=== PATIENT | male | born 1950 | race Hispanic/Latino ===

== ENCOUNTER 2018-11-05 06:16 | Day surgery (SDC) | payer OTHER ==
[2018-11-04 15:35] LABS: BASOPHILS % (AUTO) 1.4 % (0.0-5.0); EOSINOPHILS % (AUTO) 5.9 % (0.0-8.0); HEMATOCRIT 41.9 % (42-54); LYMPHOCYTES % (AUTO) 32.4 % (21.0-51.0); MEAN CORPUSCULAR HEMOGLOBIN 27.7 pg (27.0-33.0); MEAN CORPUSCULAR HGB CONC 32.8 g/dL (32.0-36.0); MEAN CORPUSCULAR VOLUME 84.7 fL (79-99); MONOCYTES % (AUTO) 6.5 % (3.0-13.0); NEUTROPHILS % (AUTO) 53.8 % (40.0-77.0); PLATELET COUNT (AUTO) 220 K/uL (130-400); RED BLOOD CELL COUNT(AUTO) 4.95 MIL/uL (4.50-6.20); RED CELL DISTRIBUTION WIDTH 13.6 % (11.0-15.5); WHITE BLOOD COUNT (AUTO) 7.1 K/uL (4.8-10.8)
[2018-11-04 15:48] VITALS: BP 154/70
[2018-11-04 15:48] LABS: CREATININE 0.9 mg/dL (0.5-1.5); POTASSIUM 3.9 mmol/L (3.5-5.1)
--- NOTE | 2018-11-04 16:50 | NUR ---
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 Repeat EKG will be determine day of procedure.
[2018-11-05] VITALS (19 sets, daily range): BP systolic 127–159; BP diastolic 62–80
[~2018-11-05] VITALS: Ht 175.3 cm; Wt 99.5 kg
[~2018-11-05 06:16] MED LIST: ASPI-555 PO
[2018-11-05] MEDS ORDERED: DEXAMETHASONE SOD PHOSPHATE 10MG/ML 1ML VIAL ONE (08:29)
[2018-11-05] MEDS ORDERED: LIDOCAINE PF 2% 5ML ABBOJECT ONE (08:29)
[2018-11-05] MEDS ORDERED: PROPOFOL 10 MG/ML 20ML VIAL IV ONE (08:29)
[2018-11-05] MEDS ORDERED: ONDANSETRON HCL 4 MG/2 ML VIAL ONE (08:29)
[2018-11-05] MEDS ORDERED: MIDAZOLAM HCL 1 MG/ML 2ML VIAL ONE (08:30)
[2018-11-05] MEDS: CEFAZOLIN SODIUM 1 GM VIAL IVP SCH ×2 (08:30→09:40)
[2018-11-05] MEDS ORDERED: SODIUM CHLORIDE 0.9% 1000ML 1,000 ML IV ONE (08:40)
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
[2018-11-05] MEDS ORDERED: FENTANYL CITRATE PF 50 MCG/1 ML 2ML VIAL ONE (09:54)
[2018-11-05] MEDS ORDERED: EPHEDRINE SULFATE 50 MG/ML AMPULE ONE (10:11)
[2018-11-05] MEDS ORDERED: MEPERIDINE-PF 25 MG/ML SYG ONE ×2 (10:57→11:08)
[2018-11-05] MEDS ORDERED: NAPR375T6 PO (10:58)
[2018-11-05] MEDS ORDERED: CEPH500B PO (10:58)
[2018-11-05] MEDS ORDERED: TYL3 PO (10:58)
[2018-11-05] MEDS ORDERED: RANI150T7 PO (11:31)
[2018-11-05] MEDS ORDERED: MULT-1258 PO (11:31)
[2018-11-05] MEDS ORDERED: ALFU10TA18 PO (11:31)
[2018-11-05] MEDS ORDERED: LISI40TA4 PO (11:31)
[2018-11-05] MEDS ORDERED: METF500S7 PO (11:31)
[2018-11-05] MEDS ORDERED: PRAV40TA3 PO (11:31)
--- NOTE | 2018-11-05 11:45 | NUR ---
PATIENT RETURNED FROM PACU IN NO DISTRESS. DRESSING TO RIGHT KNEE IS CLEAN AND DRY.
--- NOTE | 2018-11-05 12:40 | NUR ---
PATIENT DISCHARGED IN NO DISTRESS, DRESSING TO RIGHT KNEE IS CLEAN AND DRY. PATIENT DISCHARGED AAOX3 IN NO DISTRESS.
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
== END 2018-11-05 12:40 | disposition home or self-care (01) ==
LOC: DAH 06:16
PROVIDERS: ATTEND Orthopaedic Surgery
DX: S83.241A Other tear of medial meniscus, current injury, right knee, initial encounter (principal); W18.30XA Fall on same level, unspecified, initial encounter; Y93.9 Activity, unspecified; Y92.89 Other specified places as the place of occurrence of the external cause; Y99.9 Unspecified external cause status; M22.41 Chondromalacia patellae, right knee; Z68.33 Body mass index [BMI] 33.0-33.9, adult; I10 Essential (primary) hypertension; Z98.890 Other specified postprocedural states; Z79.899 Other long term (current) drug therapy; Z82.49 Family history of ischemic heart disease and other diseases of the circulatory system; Z83.3 Family history of diabetes mellitus; E78.5 Hyperlipidemia, unspecified; N40.0 Benign prostatic hyperplasia without lower urinary tract symptoms; G47.33 Obstructive sleep apnea (adult) (pediatric); K21.9 Gastro-esophageal reflux disease without esophagitis
CPT/HCPCS: 29881; 36415; 80048; 82948 ×2; 85025; A4218; A4606; A4649 ×3; A4930; A6223; J0690; J1100; J2001; J2175 ×2; J2250; J2405; J2704; J3010; J3490; J7030; J7120